=== PATIENT | female | born 1985 | race Caucasian/White ===

== ENCOUNTER 2016-11-28 04:25 | Emergency (ER) | payer OTHER ==
[~2016-11-28] VITALS: Ht 149.9 cm; Wt 65.1 kg
[~2016-11-28 04:25] MED LIST: Claritin,Alavart PO; Keppra PO; Motrin PO; Paxil PO; Percocet 5/325,Endoc PO; Thiamine,Vitamin B1 PO
[2016-11-28 05:39] LABS: HEMATOCRIT 40.6 % (36.0-46.0); MCH 28.5 PG (29.0-34.0); MCHC 34.7 G/DL (30.0-36.0); MCV 82.2 FL (83-99); MEAN PLAT.VOLUME 10.7 uM^3 (9.5-12.4); PLATELET COUNT 284 K/uL (156-360); RBC DIS.WIDTH-CV 12.9 % (11.8-14.6); RBC DIS.WIDTH-SD 37.9 % (39-53); RED BLOOD COUNT 4.94 M/uL (3.80-5.20)
[2016-11-28 05:41] LABS: WHITE BLOOD COUNT 11.8 K/uL (4.1-10.2)
[2016-11-28 05:47] LABS: CHLORIDE 106 mEq/L (99-109); POTASSIUM 3.5 mEq/L (3.7-5.4); SODIUM 140 mEq/L (136-147)
[2016-11-28 05:49] LABS: GLUCOSE 98 mg/dL (70-99)
[2016-11-28 05:50] LABS: ANION GAP 10 MEQ/L (2-14)
[2016-11-28 05:51] VITALS: BP 108/76
[2016-11-28] MEDS ORDERED: ZOLOFT100 MG PO (05:51)
[2016-11-28 05:53] LABS: GFR ESTIMATE (CALCULATED) > 59 mL/min/
[2016-11-28 05:54] LABS: UREA NITROGEN (BUN) 11 mg/dL (9-23)
[2016-11-28 06:03] LABS: QUANTITATIVE HCG < 4.0 MIU/ML
== END 2016-11-28 05:56 | disposition home or self-care (01) ==
LOC: EME 04:25
PROVIDERS: Emergency Medicine
DX: R56.9 Unspecified convulsions (principal); Z91.040 Latex allergy status; Z88.1 Allergy status to other antibiotic agents; Z88.0 Allergy status to penicillin
CPT/HCPCS: 70450; 80048; 84702; 85027; 99281; 99284